=== PATIENT | female | born 1935 | race Caucasian/White ===

== ENCOUNTER → 2017-03-07 | Outpatient (CLI) | payer MEDICARE ==
[~2017-03-07] MED LIST: BISA-49 PO; ENAL10TA46 PO; LACT1CAP35 PO; OMEG300C PO; OMNIPAQUE 350 MG/ML, 100ML BOTTLE ONE; PROP80TA PO; RANI150T8 PO; ROPI5TAB2 PO
== END | disposition home or self-care (01) ==
LOC: CFH 12:45
PROVIDERS: ATTEND Surgery Vascular Surgery
DX: I65.22 Occlusion and stenosis of left carotid artery (principal); I70.8 Atherosclerosis of other arteries; J32.0 Chronic maxillary sinusitis; E04.2 Nontoxic multinodular goiter
CPT/HCPCS: 70498; Q9967

== ENCOUNTER → 2017-11-05 | Outpatient (CLI) | payer MEDICARE ==
[~2017-11-05] MED LIST changes: -ENAL10TA46 PO; +ENAL10TA71 PO; -OMNIPAQUE 350 MG/ML, 100ML BOTTLE ONE
== END | disposition home or self-care (01) ==
LOC: CVU 10:41
PROVIDERS: ATTEND Surgery Vascular Surgery
DX: I65.23 Occlusion and stenosis of bilateral carotid arteries (principal); E78.5 Hyperlipidemia, unspecified; I10 Essential (primary) hypertension; Z86.73 Personal history of transient ischemic attack (TIA), and cerebral infarction without residual deficits
CPT/HCPCS: 93880

== ENCOUNTER → 2018-12-09 | Outpatient (CLI) | payer MEDICARE ==
[~2018-12-09] MED LIST changes: +RANI150T23 PO; -RANI150T8 PO; -ROPI5TAB2 PO; +ROPI5TAB4 PO
== END | disposition home or self-care (01) ==
LOC: CVU 10:19
PROVIDERS: ATTEND Surgery Vascular Surgery
DX: I65.23 Occlusion and stenosis of bilateral carotid arteries (principal)
CPT/HCPCS: 93880